=== PATIENT | female | born 1950 | race Caucasian/White ===

== ENCOUNTER 2020-09-04 13:32 | Inpatient (IN) | payer OTHER, BC ==
[~2020-09-04] VITALS: Ht 162.6 cm; Wt 137.9 kg
[2020-09-04 17:17] LABS: HEMATOCRIT 31.5 % (37.0-47.0); HEMOGLOBIN 9.6 gm/dL (12.0-15.0); MCH 23.3 pg (26.0-34.0); MCHC 30.4 g/dL (28.0-37.0); MCV 76.7 fL (80.0-100.0); RBC 4.1 mil/uL (4.20-5.00); RDW 16.1 % (10.5-14.5); WBC 9.8 thou/uL (4.0-11.0)
[2020-09-04 17:26] LABS: ALBUMIN 3.6 g/dL (3.4-5.0); CALCIUM 10.2 mg/dL (8.5-10.1); CREATININE 1.1 mg/dL (0.6-1.0); POTASSIUM 4.1 mmol/L (3.5-5.1); TOTAL BILIRUBIN 0.2 mg/dL (0.2-1.0); TOTAL PROTEIN 7.6 g/dL (6.4-8.2)
[2020-09-04 18:22] VITALS: BP 173/66
--- NOTE | 2020-09-04 18:30 | NUR ---
PT RECEIVED DIRECT ADMIT FROM DR. COPE'S OFFICE FOR WORKUP FOR HEART AND GI HGB DROPPING PER PRIMARY DOCTOR. ADMISSION COMPLETED AND PT AWARE OF NPO FOR STRESS TEST IN AM. DIFFICULTY OBTAINING IV PT HAS VERY SMALL VEINS. WILL CONTINUE TO TRY TO OBTAIN FOR IV PROTONIX. VITAMIN K GIVEN PER ORDERS.
[2020-09-04 19:48] VITALS: BP 177/52
[2020-09-04] MEDS ORDERED: WARFARIN SODIUM5 MG (19:59)
[2020-09-04] MEDS ORDERED: CARBAMAZEPINE100 M2 (20:01)
[2020-09-04] MEDS ORDERED: TOPROL XL100 MG PO (20:03)
[2020-09-04] MEDS ORDERED: PROTONIX40 M2 (20:04)
[2020-09-04] MEDS ORDERED: ETODOLAC 400 M400 M1 (20:06)
[2020-09-04] MEDS ORDERED: SPIRONOLACTONE25 M1 (20:06)
[2020-09-04] MEDS ORDERED: COZAAR 25 MG TA25 M1 (20:08)
[2020-09-04] MEDS ORDERED: LEVO-T100 MCG (20:08)
[2020-09-04] MEDS ORDERED: VITAMIN D31250 MC1 (20:11)
[2020-09-04] MEDS ORDERED: ACETAMINOPHEN500 M1 (20:13)
[2020-09-05 02:54] LABS: HEMATOCRIT 26.1 % (37.0-47.0); HEMOGLOBIN 8.5 gm/dL (12.0-15.0); MCH 24.5 pg (26.0-34.0); MCHC 32.6 g/dL (28.0-37.0); MCV 75.2 fL (80.0-100.0); RBC 3.47 mil/uL (4.20-5.00); RDW 16.1 % (10.5-14.5); WBC 8.4 thou/uL (4.0-11.0)
[2020-09-05 03:01] LABS: INR 2.1; PROTIME 22.1 Seconds (10.5-12.1)
--- NOTE | 2020-09-05 04:36 | NUR ---
ASSUMED CARE OF PT AT SHIFT CHANGE. PT IS AOX4 AND LETS NEEDS BE KNOWN. FALL PRECAUTION IN PLACE. PT REPORTED SOME LE PAIN BUT DENED NAUSEA AND SOA. ASSESSMNET CHARTED. PROTONIX DRIP CONTINUED. PT PLACED NPO AT NV FOR PROCEDURE IN THE AM. PT HAD HTN AND REPORTS SHE'S NOT ALLOWED TO TAKE HER BP MEDS DUE TO THE PROCEDURE. PT WAS ABLE TO SLEEP PART OF THE SHIFT. COVID TEST COMPLETED. WILL CONTINUE TO MONITOR.
[2020-09-05 07:32] VITALS: BP 131/46
--- NOTE | 2020-09-05 11:35 | NUR ---
ASSUMED PT CARE THIS AM. PT IS ALERT & ORIENTED X4. PT HAS IV SITE ON L WRIST. PT IS HAVING CARDIAC EVALUATION TODDAY. MILK POWDER GRINDER ADVCANCE DIET TO CLEAR LIQUID FOR LUNCH. WILL HAVE BOWEL PREP THIS AFTERNOON AND NPO AFTER MIDNIGHT FOR TOMORROW PROCEDURE. PT IS ON ROOM AIR. HOLD BP MEDS THIS AM DUE TO CARDIAC STRESS TODAY. WILL CONTINUE TO MONITOR PT. FOLLOW POC.
[2020-09-05 12:54] LABS: % SATURATION 3 % (20-39); IRON 15 ug/dL (50-170); TIBC 432 ug/dL (250-450)
[2020-09-05 15:49] VITALS: BP 139/67
[2020-09-06 02:32] LABS: HEMATOCRIT 27.1 % (37.0-47.0); HEMOGLOBIN 8.7 gm/dL (12.0-15.0); MCH 24.1 pg (26.0-34.0); MCHC 31.9 g/dL (28.0-37.0); MCV 75.7 fL (80.0-100.0); RBC 3.58 mil/uL (4.20-5.00); WBC 8.1 thou/uL (4.0-11.0)
[2020-09-06 02:54] LABS: INR 1.15; PROTIME 12.5 Seconds (10.5-12.1)
[2020-09-06 03:20] LABS: ALBUMIN 3.4 g/dL (3.4-5.0); CALCIUM 8.4 mg/dL (8.5-10.1); POTASSIUM 3.7 mmol/L (3.5-5.1); TOTAL BILIRUBIN 0.5 mg/dL (0.2-1.0); TOTAL PROTEIN 7.1 g/dL (6.4-8.2)
[2020-09-06 04:58] VITALS: BP 180/81
--- NOTE | 2020-09-06 07:07 | NUR ---
ASSUMED PT'S CARE THIS PM SHIFT. ALERT AND ORIENTED. VSS ON RA. MEDS GIVEN PER EMAR. PT SLEPT OFF AND ON. BOWEL PREP THIS SHIFT. BM THIS AM CLEAR LIGHT YELLOW. MEDS GIVEN PER EMAR. PT OPT TO TAKE SYNTHROID LATER ON. CALL LIGHT WITHIN REACH.
[2020-09-06 07:55] VITALS: BP 180/82
[2020-09-06 14:38] LABS: CREATININE 0.9 mg/dL (0.6-1.0); POTASSIUM 4.2 mmol/L (3.5-5.1)
--- NOTE | 2020-09-06 16:27 | NUR ---
ASSESSMENT: CM REVIEWED CHART AND SPOKE WITH PATIENT AT THE BEDSIDE. PT WAS ADMITTED FOR SYMPTOMATIC ANEMIA. PT HAD A STRESS TEST YESTERDAY AND EGD/COLONOSCOPY TODAY. PT REPORTS THAT SHE LIVES IN A TRI LEVEL HOME. PT REPORTS HAVING ABOUT 3 SMALL STEPS WITH HANDRAILS TO ENTER AND ABOUT 7 STEPS WITH HANDRAILS TO THE MAIN LEVEL AND ANOTHER 8 STEPS WITH HANDRAILS TO THE BEDROOMS. PT RPEORTS THAT SHE HAS A CANE AND ROLLATER WALKER. PT REPORTS THAT SHE ALSO HAS A SHOWER CHAIR. PT REPORTS THAT SHE HAS NOT HAD HH OR BEEN TO SNF IN THE PAST BUT THINKS SHE MAY BENEFIT FROM HH IF NEEDED AT D/C. CM NOTIFIED PT TO INFORM ATTENDING AND IF IT IS ORDERED CM CAN ARRANGE HH. CM WILL CONTINUE TO FOLLOW TO ASSIST NEEDED.
--- NOTE | 2020-09-06 19:47 | NUR ---
ASSUMED PT CARE THIS AM. PT HAS BEEN NPO SINCE MORNING FOR CARDIAC TEST, EGD AND COLONOSCOPY. PT IS ON ROOM AIR. PT IS UP WITH ASSIST X1 WITH WALKER TO THE BATHROOM. PT IS ON ROOM AIR. INFORMED MANAGER FOREIGN THAT BP WAS ELEVATED AND GIVEN BETA REGGIE WITH SIP OF WATER PER MANAGER FOREIGN ORDERED. PT NO C/O OF NAUSEA AND VOMITING. CALLED REGARDING PT ADMITTING STATUS AND CHANGED TO INPATIENT. ENDORSE NIGHT NURSE. PT BACK ON THE ROOM FROM PROCEDURE TODAY. WILL CONTINUE TO MONITOR PT.
[2020-09-06 19:50] VITALS: BP 175/75
[2020-09-06 22:30] VITALS: BP 173/71
[2020-09-07 03:20] VITALS: BP 132/51
--- NOTE | 2020-09-07 03:54 | NUR ---
PT ARRIVED FROM PROCEDURE. AOX4. PO FLUIDS GIVEN. UP WITH ASSISTX1 TO THE BATHROOM. TYELNOL GIVEN FOR PAIN. DR COPE CALLED FOR ELEVATED BP. PO LOSARTAN AND AMLODOPINE GIVEN. DENIES N/V. IV INTACT AND PROTONIX INFUSING. FALL PREC IN PLACE, CALL LIGHT AT REACH WILL CONT WITH POC TILL EOS.
[2020-09-07 04:42] LABS: INR 1.05; PROTIME 11.4 Seconds (10.5-12.1)
[2020-09-07 07:50] VITALS: BP 166/58
--- NOTE | 2020-09-07 08:48 | NUR ---
ASSUMED PT CARE THIS AM. PT TOLERATED MEDICATION AND DIET WELL. NO C/O OF PAIN, NAUSEA AND VOMITING. REMOVED IV DUE TO IV INFILTRATED AND PT REFUSED TO HAVE A NEW IV. PT IS ALERT & ORIENTED X4. WILL CONTINUE TO MONITOR PT. FOLLOW POC.
[2020-09-07] MEDS ORDERED: XARELTO20 MG PO (09:21)
[2020-09-07] MEDS ORDERED: CARAFATE1 GM/10 ML PO (09:23)
[2020-09-07 10:40] VITALS: BP 166/58
--- NOTE | 2020-09-07 14:06 | NUR ---
ON-GOING ASSESSMENT: CM REVIEWED CHART. PT HAD EGD/COLONSCOPY YESTERDAY. PT HAS ORDERS TO DISCHARGE HOME TODAY WITH HOME WITH NO NEEDS. PT ALREADY LEFT THE UNIT THIS DAY PRIOR TO CM SEEING PATIENT. PT DISCHARGED NO NEEDS.
--- NOTE | 2020-09-11 15:08 | PATH ---
[facility] [address] [place] [address] PATHOLOGY RPT PROCEDURE Name: SANDOR SINGH Room #: 447-P DIS IN M.R.#: [id number] Admission: 09/04/20 Date of : 52 Discharge: 09/07/20 Report #: [id number] Path Case #: [id number] [facility] Accession Number: [id number] . 01 Material submitted: . gastrointestinal site - RANDOM GASTRIC BIOPSY R/O H. PYLORI . 01 Clinical history: . EGD/COLONOSCOPY ANEMIA/GASTRIC ULCER . 02 Diagnosis: Gastric mucosa, random gastric rule out H. pylori, endoscopic biopsy: - Mild chronic gastritis with features of reactive gastropathy. - Negative for intestinal metaplasia or atrophy. - Negative for Helicobacter pylori (properly-controlled immunohistochemical stain performed). . (IUV:mml; 09/11/2020) QLM 09/11/2020 1056 Local . 02 Electronically signed: . Maria Ines Solis MD, Pathologist NPI- [id number] . 01 Gross description: . The specimen is submitted in formalin, labeled "Sandor Singh, gastric biopsy". The source is additionally listed on the requisition as "random gastric biopsy R/O H. pylori". Received are multiple segments of pale ruiz tissue ranging in size from 0.3 to 0.5 cm in maximum dimensions. The specimen is submitted in cassette A1. ([facility]; 09/07/2020) NRI/NRI 09/07/2020 1707 Local . 02 Pathologist provided ICD-10: K29.50 . 02 CPT . [id number], [id number] Specimen Comment: A courtesy copy of this report has been sent to [phone], [phone] Specimen Comment: [phone] Specimen Comment: Report sent to / DR COPE Performed at: [address], [place], [place] [id number] MD Quang Louis MD Phone: [phone] [place] [address] PATHOLOGY RPT PROCEDURE Name: SANDOR SINGH Room #: 447-P DIS IN M.R.#: [id number] Admission: 09/04/20 Date of : 52 Discharge: 09/07/20 Report #: [id number] Path Case #: [id number] Performed at: [address] [id number] MD Maria Ines Solis MD Phone: [phone]
== END 2020-09-07 12:00 | disposition home or self-care (01) | DRG 811 ==
LOC: TBA 13:32 → 4S 14:14
PROVIDERS: Internal Medicine Gastroenterology; Nurse Practitioner; Nurse Practitioner Adult Health; ADMIT Internal Medicine Cardiovascular Disease; ATTEND Internal Medicine Cardiovascular Disease
PROC: 0DJD8ZZ Inspection of Lower Intestinal Tract, Via Natural or Artificial Opening Endoscopic (ICD-10-PCS; principal; 2020-09-06)
PROC: 0DB68ZX Excision of Stomach, Via Natural or Artificial Opening Endoscopic, Diagnostic (ICD-10-PCS; principal; 2020-09-06)
DX: D64.9 Anemia, unspecified (principal); K25.4 Chronic or unspecified gastric ulcer with hemorrhage; D68.9 Coagulation defect, unspecified; Z68.43 Body mass index [BMI] 50.0-59.9, adult; I10 Essential (primary) hypertension; E78.5 Hyperlipidemia, unspecified; E03.9 Hypothyroidism, unspecified; E66.9 Obesity, unspecified; Z20.822 Contact with and (suspected) exposure to COVID-19; G89.29 Other chronic pain; R10.9 Unspecified abdominal pain; Z87.11 Personal history of peptic ulcer disease; Z86.711 Personal history of pulmonary embolism
CPT/HCPCS: 10102; 62110; 62900; 70005

== ENCOUNTER → 2020-09-04 | Outpatient (CLI) | payer OTHER, BC ==
[~2020-09-04] MED LIST: ACETAMINOPHEN500 M1; CARAFATE1 GM/10 ML PO; CARBAMAZEPINE100 M2; COZAAR 25 MG TA25 M1; ETODOLAC 400 M400 M1; LEVO-T100 MCG; PROTONIX40 M2; SPIRONOLACTONE25 M1; TOPROL XL100 MG PO; VITAMIN D31250 MC1; WARFARIN SODIUM5 MG; XARELTO20 MG PO
== END ==
LOC: SJCVCIMAG 12:49
PROVIDERS: ATTEND Internal Medicine Cardiovascular Disease
DX: Z53.8 Procedure and treatment not carried out for other reasons (principal)

== ENCOUNTER → 2020-11-19 | Outpatient (CLI) | payer OTHER, BC ==
[~2020-11-19] VITALS: Ht 162.6 cm; Wt 137.9 kg
[~2020-11-19] MED LIST changes: +CARAFATE1 GM PO; +LOSARTAN POTASS50 MG PO; +TIROSINT125 MCG PO; +TRAMADOL 50 MG50 MG PO
== END | disposition home or self-care (01) ==
LOC: GI 10:15
PROVIDERS: ATTEND Internal Medicine Gastroenterology
DX: K27.9 Peptic ulcer, site unspecified, unspecified as acute or chronic, without hemorrhage or perforation (principal); K31.7 Polyp of stomach and duodenum; K44.9 Diaphragmatic hernia without obstruction or gangrene; I10 Essential (primary) hypertension; E78.00 Pure hypercholesterolemia, unspecified; M79.7 Fibromyalgia; F32.9 Major depressive disorder, single episode, unspecified; F41.9 Anxiety disorder, unspecified; Z98.890 Other specified postprocedural states; Z79.899 Other long term (current) drug therapy; Z20.822 Contact with and (suspected) exposure to COVID-19; Z86.711 Personal history of pulmonary embolism; Z79.01 Long term (current) use of anticoagulants; Z86.73 Personal history of transient ischemic attack (TIA), and cerebral infarction without residual deficits

== ENCOUNTER → 2021-01-21 | Outpatient (CLI) | payer OTHER, BC | LOC: SJCVC 11:21 | PROVIDERS: ATTEND Internal Medicine Cardiovascular Disease | DX: R94.31 Abnormal electrocardiogram [ECG] [EKG] (principal); I49.8 Other specified cardiac arrhythmias; I10 Essential (primary) hypertension; E78.5 Hyperlipidemia, unspecified; I44.7 Left bundle-branch block, unspecified; D68.59 Other primary thrombophilia; D64.9 Anemia, unspecified; I87.2 Venous insufficiency (chronic) (peripheral); E03.9 Hypothyroidism, unspecified; Z86.711 Personal history of pulmonary embolism; Z87.898 Personal history of other specified conditions; Z79.899 Other long term (current) drug therapy; Z88.1 Allergy status to other antibiotic agents; Z88.0 Allergy status to penicillin ==